=== PATIENT | male | born 1960 | race Caucasian/White ===

== ENCOUNTER 2025-03-02 06:06 | Day surgery (SDC) | payer BC ==
[2025-02-27 11:31] VITALS: BMI 42.0
[2025-03-02] MEDS ORDERED: Lidocaine 1% PF 5 ML VIAL ONE (08:02)
[2025-03-02] MEDS ORDERED: PROPOFOL 200 MG/20 ML VIAL ONE (08:02)
== END 2025-03-02 09:32 | disposition home or self-care (01) ==
LOC: SDC 06:06
PROVIDERS: ATTEND Internal Medicine Cardiovascular Disease
PROC: B24BZZ4 Ultrasonography of Heart with Aorta, Transesophageal (ICD-10-PCS; principal; 2025-03-02)
DX: I48.19 Other persistent atrial fibrillation (principal); I63.119 Cerebral infarction due to embolism of unspecified vertebral artery; I11.0 Hypertensive heart disease with heart failure; I50.32 Chronic diastolic (congestive) heart failure; I08.1 Rheumatic disorders of both mitral and tricuspid valves; E11.9 Type 2 diabetes mellitus without complications; E66.813 Obesity, class 3; Z68.41 Body mass index [BMI] 40.0-44.9, adult; Z88.2 Allergy status to sulfonamides; Z79.01 Long term (current) use of anticoagulants; Z79.84 Long term (current) use of oral hypoglycemic drugs; Z79.899 Other long term (current) drug therapy
CPT/HCPCS: 93312; J2704